=== PATIENT | male | born 1980 | race Caucasian/White ===

== ENCOUNTER 2023-08-16 06:24 | Day surgery (SDC) | payer MEDICAID ==
[~2023-08-16 06:24] MED LIST: Lactated Ringers 1,000 ML IV SCH
[2023-08-16] MEDS ORDERED: Propofol 200 MG/20 ML SDV ONE ×3 (07:49→08:26)
[2023-08-16] MEDS ORDERED: Lidocaine 2% 5 ML SDV ONE (07:49)
[2023-08-16] MEDS ORDERED: Lactated Ringers 1,000 ML IV SCH (08:45)
== END 2023-08-16 09:25 | disposition home or self-care (01) ==
LOC: MW.SDS 06:24
PROVIDERS: ATTEND Surgery
DX: K29.70 Gastritis, unspecified, without bleeding (principal); K21.9 Gastro-esophageal reflux disease without esophagitis; K42.9 Umbilical hernia without obstruction or gangrene; R10.9 Unspecified abdominal pain; Z79.899 Other long term (current) drug therapy
CPT/HCPCS: 43239; 45380; J2704; J7120; J3490

== ENCOUNTER 2024-01-06 07:28 | Day surgery (SDC) | payer SELFPAY ==
[~2024-01-06 07:28] MED LIST changes: -Lactated Ringers 1,000 ML IV SCH; +ceFAZolin 2 GM in Sodium Chloride 0.9% 50 ML IV ONE
[2024-01-06] MEDS ORDERED: Naloxone 0.4 MG/ML SDV IVPUSH PRN (07:33)
[2024-01-06] MEDS ORDERED: HYDROmorphone 1 MG/ML Syringe IVPUSH PRN (07:33)
[2024-01-06] MEDS ORDERED: Ondansetron 4 MG/2 ML SDV IVPUSH PRN (07:33)
[2024-01-06] MEDS ORDERED: Albuterol 0.083% 2.5 MG/3 ML Neb Soln NEB PRN (07:33)
[2024-01-06] MEDS ORDERED: droPERidol 5 MG/2 ML SDV IVPUSH PRN (07:33)
[2024-01-06] MEDS ORDERED: Morphine 2 MG/ML SYRINGE IVPUSH PRN (07:33)
[2024-01-06] MEDS ORDERED: Metoclopramide 10 MG/2 ML SDV IVPUSH PRN (07:33)
[2024-01-06] MEDS ORDERED: Bupivacaine 0.5% 30 ML SDV ONE (07:51)
[2024-01-06] MEDS: Lactated Ringers 1,000 ML IV SCH (07:55)
[2024-01-06] MEDS ORDERED: Ketamine HCL/NACL, ISO-OSM 50 MG/5 ML Syringe ONE (08:21)
[2024-01-06] MEDS ORDERED: Morphine 10 MG/ML SDV ONE (08:21)
[2024-01-06] MEDS ORDERED: fentaNYL 250 MCG/5 ML SDV ONE (08:21)
[2024-01-06] MEDS ORDERED: Propofol 200 MG/20 ML SDV ONE (08:21)
[2024-01-06] MEDS ORDERED: Ropivacaine 0.5% 5 MG/ML 30 ML SDV ONE (08:24)
[2024-01-06] MEDS ORDERED: Famotidine 20 MG/2 ML SDV ONE (08:24)
[2024-01-06] MEDS ORDERED: Water For Injection, Sterile 20 ML ONE (08:25)
[2024-01-06] MEDS ORDERED: Lidocaine 2% 11 ML Jelly Filled Syringe ONE (08:27)
[2024-01-06] MEDS ORDERED: ceFAZolin 2 GM Vial ONE (09:20)
[2024-01-06] MEDS ORDERED: Rocuronium Bromide 50 MG/5 ML Syringe ONE (09:53)
[2024-01-06] MEDS ORDERED: Dexamethasone 4 MG/ML 5 ML MDV ONE (09:53)
[2024-01-06] MEDS ORDERED: Ketorolac 30 MG/ML SDV ONE (09:53)
[2024-01-06] MEDS ORDERED: Sugammadex Sodium 200 MG/2 ML VIAL IV ONE (09:53)
[2024-01-06] MEDS ORDERED: Ondansetron 4 MG/2 ML SDV ONE (09:53)
[2024-01-06] MEDS ORDERED: Lactated Ringers 1,000 ML IV SCH (10:30)
[2024-01-06] MEDS: fentaNYL 50 MCG/ML SDV IVPUSH PRN (11:01)
[2024-01-06] MEDS: Acetaminophen/HYDROcodone 325-5 MG Tab PO PRN (12:05)
== END 2024-01-06 12:15 | disposition home or self-care (01) ==
LOC: MW.SDS 07:28
PROVIDERS: ATTEND Surgery
DX: K42.0 Umbilical hernia with obstruction, without gangrene (principal); K21.9 Gastro-esophageal reflux disease without esophagitis; Z87.891 Personal history of nicotine dependence; Z79.899 Other long term (current) drug therapy
CPT/HCPCS: 49592; 64488; 82947; A9270; J0131; J0665; J0690; J1100; J1885; J2270; J2405; J2704; J2795; J3010; J3490; J7120

== ENCOUNTER 2024-03-21 10:02 | Emergency (ER) | payer SELFPAY ==
[2024-03-21 10:31] LABS: BASOPHILS ABSOLUTE AUTO 0.07 K/uL (0.00-0.20); BASOPHILS PERCENT AUTO 0.6 % (0.0-1.0); EOSINOPHILS ABSOLUTE AUTO 0.21 K/uL (0.00-0.45); EOSINOPHILS PERCENT AUTO 1.9 % (0.0-6.0); HEMATOCRIT 49.3 % (42.0-52.0); IMMATURE GRAN ABSOLUTE AUTO 0.26 K/uL (0.00-0.05); IMMATURE GRAN PERCENT AUTO 2.3 % (0.0-0.4); LYMPHOCYTES ABSOLUTE AUTO 2.57 K/uL (1.00-4.80); LYMPHOCYTES PERCENT AUTO 22.8 % (24.0-44.0); MEAN CORPUSCULAR HEMOGLOBIN 30.5 pg (28.0-32.0); MEAN CORPUSCULAR HGB CONC 34.5 g/dL (32.0-36.0); MEAN CORPUSCULAR VOLUME 88.4 fL (83.0-99.0); MONOCYTES PERCENT AUTO 9.7 % (0.0-8.0); NEUTROPHILS ABSOLUTE AUTO 7.08 K/uL (1.80-7.70); NEUTROPHILS PERCENT AUTO 62.7 % (41.0-71.0); PLATELET COUNT,PLT 286 K/uL (150-400); RED BLOOD CELL COUNT 5.58 M/uL (4.52-5.90); WHITE BLOOD CELL COUNT,WBC 11.29 K/uL (3.9-11.3)
[2024-03-21 10:43] LABS: A/G RATIO 1.1 (0.9-1.6); BILIRUBIN TOTAL 0.5 mg/dL (0.2-1.0); CALCIUM 8.5 mg/dL (8.5-10.1); CREATININE 1.3 mg/dL (0.8-1.3); EST CRCL DRUG DOSING (CG) 75.65 mL/min; POTASSIUM,K 4.2 mmol/L (3.5-5.1); PROTEIN TOTAL,TP 7.5 g/dL (6.4-8.2)
[2024-03-21] MEDS: Sodium Chloride 0.9% 1,000 ML IV STA (11:11)
[2024-03-21] MEDS: Sodium Chloride 0.9% 10 ML Syringe FLUSH PRN (11:12)
[2024-03-21] MEDS: Sodium Chloride 0.9% 2.5 ML Syringe FLUSH PRN (11:13)
== END 2024-03-21 12:37 | disposition home or self-care (01) ==
LOC: MW.ED 10:02
DX: R41.0 Disorientation, unspecified (principal); E11.9 Type 2 diabetes mellitus without complications; Z79.84 Long term (current) use of oral hypoglycemic drugs; Z79.899 Other long term (current) drug therapy; Z75.8 Other problems related to medical facilities and other health care
CPT/HCPCS: 70450; 71045; 80053; 82947; 84484; 85025; 93005; 96360; 99285; J3490; J7030

== ENCOUNTER 2025-07-07 20:10 | Emergency (ER) | payer SELFPAY ==
[2025-07-07 20:25] LABS: MEAN PLATELET VOLUME 9.9 fL (9.4-12.4); NRBC ABSOLUTE 0.00 K/uL (0.00-0.02); NRBC PERCENT 0.0 /100WBC (0.0-0.2); PLATELET COUNT,PLT 268 K/uL (150-400); RED BLOOD CELL COUNT 6.50 M/uL (4.52-5.90); WHITE BLOOD CELL COUNT,WBC 11.66 K/uL (3.9-11.3)
[2025-07-07] MEDS: diphenhydrAMINE 50 MG/ML SDV IVPUSH ONE (20:29)
[2025-07-07] MEDS: diphenhydrAMINE 50 MG/ML SDV ONE (20:30)
[2025-07-07] MEDS: methylPREDNISolone Sodium Succinate 125 MG/2 ML SDV IVPUSH ONE (20:31)
[2025-07-07] MEDS: EPINEPHrine 1 MG/ML SDV ONE ×2 (20:31)
[2025-07-07] MEDS: methylPREDNISolone Sodium Succinate 125 MG/2 ML SDV ONE (20:32)
[2025-07-07] MEDS: EPINEPHrine 1 MG/ML SDV IM ONE ×2 (20:34→21:55)
[2025-07-07 20:53] LABS: A/G RATIO 1.3 (0.9-1.6); ALANINE AMINOTRANSFERASE,ALT 38 IU/L (14-63); ASPARTATE AMNIOTRANSFERASE,AST 25 IU/L (15-37); BILIRUBIN TOTAL 0.4 mg/dL (0.2-1.0); BLOOD UREA NITROGEN,BUN 17 mg/dL (7.0-18.0); CARBON DIOXIDE,CO2 18.2 mmol/L (21.0-32.0); CHLORIDE,CL 101 mmol/L (98-107); CREATININE 1.4 mg/dL (0.8-1.3); EST CRCL DRUG DOSING (CG) 66.63 mL/min; ETHANOL BLOOD MEDICAL 135 mg/dL; GLUCOSE RANDOM 128 mg/dL (74-106); POTASSIUM,K 4.1 mmol/L (3.5-5.1); PROTEIN TOTAL,TP 7.7 g/dL (6.4-8.2); SODIUM,NA 135 mmol/L (136-148)
[2025-07-07 20:56] LABS: ESTIMATED GFR 63 mL/min (>60)
[2025-07-07 21:18] LABS: LYMPHOCYTES ABSOLUTE MAN 5.83 K/uL (1.00-4.80); LYMPHOCYTES PERCENT MAN 50 % (24-44); MONOCYTES ABSOLUTE MAN 0.93 K/uL (0.00-0.80); MONOCYTES PERCENT MAN 8 % (0-8); SEG NEUTROPHILS ABSOLUTE MAN 4.90 K/uL (1.80-7.70); SEG NEUTROPHILS PERCENT MAN 42 % (41-71)
[2025-07-07] MEDS: droPERidol 2.5 MG/ML SDV ONE (21:29)
[2025-07-07] MEDS: droPERidol 2.5 MG/ML SDV IVPUSH ONE (21:29)
== END 2025-07-07 22:14 | disposition home or self-care (01) ==
LOC: MW.ED 20:10
DX: T78.40XA Allergy, unspecified, initial encounter (principal); E11.9 Type 2 diabetes mellitus without complications; Z79.84 Long term (current) use of oral hypoglycemic drugs; Z79.899 Other long term (current) drug therapy; Z91.030 Bee allergy status
CPT/HCPCS: 36415; 80053; 80143; 80179; 80307; 85025; 96361; 96372; 96374; 96375; 99285; J0169; J1200; J1308; J2919; J7030; 93010; 99284